=== PATIENT | male | born 1995 | race Two or more races ===

== ENCOUNTER 2020-05-02 20:05 | Emergency (ER) | payer BC ==
[2020-05-02] MEDS ORDERED: diphenhydrAMINE HCL 50 MG/ML VIAL ONE (20:47)
[2020-05-02] MEDS ORDERED: diphenhydrAMINE HCL 50 MG CAPSULE PO ONE (21:00)
[2020-05-02] MEDS ORDERED: diphenhydrAMINE HCL 50 MG/ML VIAL IM ONE (21:00)
== END 2020-05-02 21:38 | disposition home or self-care (01) ==
DX: S61.216A Laceration without foreign body of right little finger without damage to nail, initial encounter (principal); G24.09 Other drug induced dystonia; T43.4X5A Adverse effect of butyrophenone and thiothixene neuroleptics, initial encounter; F15.10 Other stimulant abuse, uncomplicated; F13.10 Sedative, hypnotic or anxiolytic abuse, uncomplicated; Z88.8 Allergy status to other drugs, medicaments and biological substances; W25.XXXA Contact with sharp glass, initial encounter; Y93.E8 Activity, other personal hygiene; Y92.89 Other specified places as the place of occurrence of the external cause; Y99.8 Other external cause status
CPT/HCPCS: 96372; 99283; J1200

== ENCOUNTER 2020-09-14 19:32 | Emergency (ER) | payer BC ==
[~2020-09-14] VITALS: Ht 175.3 cm; Wt 79.4 kg
--- NOTE | 2020-09-14 19:40 | NUR ---
PT BIBEMPLOYEE FROM [facility] REQUESTING MEDICAL CLEARANCE. PT ADMITS TO METH USE 4 DAYS AGO, DENIES SI/HI AT THIS TIME. PT AAOX4. CALM AND COOPERATIVE. VITAL SIGNS STABLE. RESPIRATIONS EVEN AND UNLABORED. NO ACUTE DISTRESS NOTED AT THIS TIME. PENDING MD MCKEON
[2020-09-14 21:17] LABS: BASOPHILS % (AUTO) 0.4 % (0.0-2.0); EOSINOPHILS % (AUTO) 1.5 % (0.0-6.0); HEMATOCRIT 44 % (39-51); HEMOGLOBIN 14.7 g/dL (13.5-17.5); LYMPHOCYTES # (AUTO) 3.1 /CMM (0.8-4.8); LYMPHOCYTES % (AUTO) 37.6 % (20.0-44.0); MEAN CORPUSCULAR HGB CONC 33 g/dl (31.0-36.0); MEAN CORPUSCULAR VOLUME 86 fL (80-96); MONOCYTES # (AUTO) 1.4 /CMM (0.1-1.30); MONOCYTES % (AUTO) 16.5 % (2.0-12.0); NEUTROPHILS # (AUTO) 3.7 /CMM (1.8-8.9); PLATELET COUNT (AUTO) 295 /CMM (150-450); RED BLOOD CELL COUNT(AUTO) 5.11 MIL/uL (4.5-6.0); WHITE BLOOD COUNT (AUTO) 8.4 K/uL (4.3-11.0)
[2020-09-14 21:28] LABS: CALCIUM, SERUM 9.2 mg/dL (8.5-10.1); CARBON DIOXIDE 29 mmol/L (21-32); CHLORIDE 100 mmol/L (98-107); CREATININE 0.8 mg/dL (0.6-1.3); GLUCOSE 85 mg/dL (74-106); POTASSIUM 3.8 mmol/L (3.5-5.1); SODIUM SERUM 137 mmol/L (136-145); UREA NITROGEN, BLOOD 19 mg/dL (7-18)
--- NOTE | 2020-09-14 21:31 | NUR ---
COVID SWAB COLLECTED AND SENT TO LAB.
[2020-09-14 21:39] LABS: ALANINE AMINOTRANSFERASE 165 U/L (12-78); ALBUMIN 4.9 g/dL (3.4-5.0); ALCOHOL, BLOOD < 3 mg/dL (0-0); ALKALINE PHOSPHATASE 69 U/L (46-116); ASPARTATE AMINOTRANSFERASE 91 U/L (15-37); BILIRUBIN,DIRECT 0.3 mg/dL (0.0-0.2); TOTAL PROTEIN, SERUM 8.7 g/dL (6.4-8.2)
[2020-09-14 21:49] LABS: ACETAMINOPHEN < 0 ug/ml (10-30)
[2020-09-14 21:51] LABS: BILIRUBIN,URINE SMALL (NEGATIVE); COLOR,URINE YELLOW (YELLOW); LEUKOCYTE ESTERASE ,URINE NEGATIVE (NEGATIVE); NITRITE, URINE NEGATIVE (NEGATIVE); PROTEIN,URINE NEGATIVE (NEGATIVE); UGLUCOSE NEGATIVE (NEGATIVE)
--- NOTE | 2020-09-14 22:07 | NUR ---
Call from lab. Rapid covid negative.
[2020-09-14 22:29] LABS: BACTERIA,URINE 1+ /HPF (None Seen); MUCUS,URINE Few /LPF (None Seen); SQUAMOUS EPITHELIAL CELL,UR Few /HPF (None Seen); URINE AMORPHOUS URATE Few /HPF (None Seen)
[2020-09-14 22:36] LABS: LYMPHOCYTES % (MANUAL) 42 % (16-48); NEUTROPHILS % (MANUAL) 40 (42-76)
[2020-09-14 22:37] LABS: EOSINOPHILS % (MANUAL) 5 % (0-4); MONOCYTES % (MANUAL) 13 % (0-11.0)
[2020-09-14 22:41] VITALS: BP 128/76
--- NOTE | 2020-09-14 22:41 | NUR ---
Patient discharged to home in stable condition. Written and verbal after care instructions given. Patient verbalizes understanding of instruction. Pt left with staff from detox facility. Pt ambulatory with steady gait
== END 2020-09-14 22:42 | disposition home or self-care (01) ==
LOC: ER 19:34
DX: Z02.2 Encounter for examination for admission to residential institution (principal); F15.10 Other stimulant abuse, uncomplicated; F13.90 Sedative, hypnotic, or anxiolytic use, unspecified, uncomplicated; Z20.822 Contact with and (suspected) exposure to COVID-19; F19.10 Other psychoactive substance abuse, uncomplicated; R74.01 Elevation of levels of liver transaminase levels
CPT/HCPCS: 36415; 80048; 80076; 80299; 80307; 80320; 81001; 85007; 85025; 87086; 87426; 99283; C9803; G0480

== ENCOUNTER 2020-10-12 13:24 | Emergency (ER) | payer BC, OTHER ==
[~2020-10-12] VITALS: Ht 175.3 cm; Wt 81.6 kg
--- NOTE | 2020-10-12 13:31 | NUR ---
DR PENN AT BEDSIDE
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
[2020-10-12] MEDS ORDERED: IBUP-1955 PO (15:11)
--- NOTE | 2020-10-12 15:26 | NUR ---
Patient discharged to home in stable condition. Written and verbal after care instructions given. Patient verbalizes understanding of instruction.
[2020-10-12 15:27] VITALS: BP 110/69
== END 2020-10-12 15:28 | disposition home or self-care (01) ==
LOC: ER 13:27
DX: M25.511 Pain in right shoulder (principal); R00.0 Tachycardia, unspecified; F10.10 Alcohol abuse, uncomplicated; Y90.9 Presence of alcohol in blood, level not specified; Z98.890 Other specified postprocedural states; Z88.9 Allergy status to unspecified drugs, medicaments and biological substances; Z79.899 Other long term (current) drug therapy
CPT/HCPCS: 73000-TC; 73030-TC

== ENCOUNTER 2021-09-23 19:08 | Emergency (ER) | payer BC, OTHER ==
[~2021-09-23] VITALS: Ht 175.3 cm; Wt 78.5 kg
[~2021-09-23 19:08] MED LIST: IBUP-1955 PO
--- NOTE | 2021-09-23 19:19 | NUR ---
[id number] C/O HEADACHE, R EYE PAIN X 2 YEARS, ADMITS TO METH USE DENIES ANY RECENT TRAUMA. PT A/OX3. TOLERATING R/A WELL WITH NO SOB. AMB WITH STEADY GAIT
--- NOTE | 2021-09-23 19:59 | NUR ---
DR. MENA AT PT'S BEDSIDE
--- NOTE | 2021-09-23 20:08 | NUR ---
Patient discharged to home in stable condition. Written and verbal after care instructions given. Patient verbalizes understanding of instruction.
[2021-09-23 20:22] VITALS: BP 123/70
== END 2021-09-23 20:23 | disposition home or self-care (01) ==
LOC: ER 19:09
DX: G47.00 Insomnia, unspecified (principal); Z88.8 Allergy status to other drugs, medicaments and biological substances